=== PATIENT | female | born 1945 | race Caucasian/White ===

== ENCOUNTER 2018-12-12 22:34 | Emergency (ER) | payer OTHER ==
[~2018-12-12] VITALS: Ht 157.5 cm; Wt 77.1 kg
[2018-12-12] MEDS ORDERED: Zocor20 MG PO (22:55)
[2018-12-12] MEDS ORDERED: Hair, Skin & N1 EACH PO (22:56)
[2018-12-12] MEDS ORDERED: ESTR2 PO (22:56)
[2018-12-12] MEDS ORDERED: ASPI325 PO (22:56)
[2018-12-12 23:07] LABS: BASOPHILS ABSOLUTE AUTO 0.05 K/mm3 (0.00-0.23); BASOPHILS PERCENT AUTO 1 % (0-2); EOSINOPHILS ABSOLUTE AUTO 0.16 K/mm3 (0.00-0.68); EOSINOPHILS PERCENT AUTO 2 % (0-6); Hematocrit 43.3 % (33.0-51.0); Hemoglobin 14.3 g/dL (11.5-16.0); IMMATURE GRAN ABSOLUTE AUTO 0.03 K/mm3 (0.00-0.10); IMMATURE GRAN PERCENT AUTO 0 % (0-1); LYMPHOCYTES ABSOLUTE AUTO 3.07 K/mm3 (0.84-5.20); LYMPHOCYTES PERCENT AUTO 31 % (21-46); MONOCYTES ABSOLUTE AUTO 0.73 K/mm3 (0.16-1.47); MONOCYTES PERCENT AUTO 7 % (4-13); Mean Corpuscular HGB 31.7 pg (26.0-34.0); Mean Corpuscular Volume 96 fL (80-100); Mean Platelet Volume 10.7 fL (9.1-12.4); NEUTROPHILS ABSOLUTE AUTO 5.96 K/mm3 (1.96-9.15); NEUTROPHILS PERCENT AUTO 60 % (41-73); Platelet Count 235 K/mm3 (150-400); RDW Coefficient Variation 13.1 % (11.7-14.2); RDW Standard Deviation 46.2 fL (35.1-46.3); Red Blood Cell Count 4.51 M/mm3 (3.80-5.20)
[2018-12-12 23:30] LABS: Alanine Aminotransfer (ALT/SGP 34 U/L (12-78); Albumin, Blood 4.4 g/dL (3.4-5.0); Albumin/Globulin Ratio 1.3 (0.8-1.8); Alk Phos 86 U/L (50-136); Anion Gap 9 mmol/L (6-16); Aspartate Aminotrans (AST/SGOT 19 U/L (12-37); Bilirubin, Total 0.3 mg/dL (0.1-1.0); Blood Urea Nitrogen 38 mg/dL (8-24); Bun/Creatinine Ratio 46.4 (12.0-20.0); CO2, Blood 24 mmol/L (21-32); Calcium, Blood 9.1 mg/dL (8.5-10.1); Chloride, Blood 109 mmol/L (98-108); Creatinine, Blood 0.82 mg/dL (0.40-1.00); Globulin, Blood 3.3 g/dL (2.2-4.0); Glomerular Filtration Rate >60 (60-); Glucose, Blood 116 mg/dL (70-99); Potassium, Blood 3.8 mmol/L (3.5-5.5); Sodium, Blood 142 mmol/L (136-145); Total Protein, Blood 7.7 g/dL (6.4-8.2); Troponin I <0.015 ng/mL (0.000-0.040)
[2018-12-13] MEDS ORDERED: Lopressor 25 mg25 MG PO (00:21)
== END 2018-12-13 00:45 | disposition home or self-care (01) ==
LOC: ER 22:34
PROVIDERS: Emergency Medicine
DX: I48.0 Paroxysmal atrial fibrillation (principal); I10 Essential (primary) hypertension; Z79.899 Other long term (current) drug therapy; Z79.82 Long term (current) use of aspirin; E78.00 Pure hypercholesterolemia, unspecified
CPT/HCPCS: 71046; 80053; 83880; 84443; 84484; 85025; 93005; 93010; 99285-25

== ENCOUNTER 2019-07-18 09:16 | Day surgery (SDC) | payer MEDICARE ==
[~2019-07-18 09:16] MED LIST: ASCO500 PO; ASPI325 PO; CALCIUM PO; ELIQUIS2.5 MG PO; ESTR2 PO; ESTRADIOL PO; FISH OIL PO; GLUCOSAMINE &1 EACH PO; Hair, Skin & N1 EACH PO; Lopressor 25 mg25 MG PO; METO25; VITA D PO; VITAMIN D35000 UNIT PO; Zocor20 MG PO
[2019-07-18] MEDS ORDERED: COQ1050 MG PO (09:26)
[2019-07-18] MEDS ORDERED: THERA1 EACH PO (09:26)
[2019-07-18 10:31] LABS: BASOPHILS ABSOLUTE AUTO 0.04 K/mm3 (0.00-0.23); BASOPHILS PERCENT AUTO 1 % (0-2); EOSINOPHILS ABSOLUTE AUTO 0.12 K/mm3 (0.00-0.68); EOSINOPHILS PERCENT AUTO 2 % (0-6); Hematocrit 39.1 % (33.0-51.0); Hemoglobin 13.1 g/dL (11.5-16.0); IMMATURE GRAN ABSOLUTE AUTO 0.02 K/mm3 (0.00-0.10); IMMATURE GRAN PERCENT AUTO 0 % (0-1); LYMPHOCYTES ABSOLUTE AUTO 1.59 K/mm3 (0.84-5.20); LYMPHOCYTES PERCENT AUTO 22 % (21-46); MONOCYTES ABSOLUTE AUTO 0.35 K/mm3 (0.16-1.47); MONOCYTES PERCENT AUTO 5 % (4-13); Mean Corpuscular HGB 31.6 pg (26.0-34.0); Mean Corpuscular HGB Conc 33.5 g/dL (31.5-36.5); Mean Corpuscular Volume 94 fL (80-100); Mean Platelet Volume 10.4 fL (9.1-12.4); NEUTROPHILS ABSOLUTE AUTO 5.14 K/mm3 (1.96-9.15); NEUTROPHILS PERCENT AUTO 71 % (41-73); Platelet Count 205 K/mm3 (150-400); RDW Coefficient Variation 12.4 % (11.7-14.2); RDW Standard Deviation 42.7 fL (35.1-46.3); Red Blood Cell Count 4.15 M/mm3 (3.80-5.20); White Blood Cell Count 7.26 K/mm3 (4.00-11.30)
[2019-07-18 10:49] LABS: Prothrombin Time Results 10.6 Sec (9.7-11.5)
[2019-07-18 11:23] LABS: Anion Gap 6 mmol/L (6-16); Blood Urea Nitrogen 19 mg/dL (8-24); CO2, Blood 24 mmol/L (21-32); Calcium, Blood 9.2 mg/dL (8.5-10.1); Chloride, Blood 109 mmol/L (98-108); Creatinine, Blood 0.76 mg/dL (0.40-1.00); Glomerular Filtration Rate >60 (60-); Glucose, Blood 98 mg/dL (70-99); Potassium, Blood 4.1 mmol/L (3.5-5.5); Sodium, Blood 139 mmol/L (136-145)
== END 2019-07-18 23:34 | disposition home or self-care (01) ==
LOC: PRE 09:16
PROVIDERS: Orthopaedic Surgery
DX: Z01.818 Encounter for other preprocedural examination (principal); M17.12 Unilateral primary osteoarthritis, left knee
CPT/HCPCS: 36415; 80048; 85025; 85610; 85730; 93005; 93010

== ENCOUNTER 2019-08-06 09:23 | Day surgery (SDC) | payer MEDICARE ==
[~2019-08-06] VITALS: Ht 157.5 cm; Wt 76.3 kg
[~2019-08-06 09:23] MED LIST changes: +COQ1050 MG PO; +THERA1 EACH PO
--- NOTE | 2019-08-06 10:09 | NUR ---
Ambulatory in Day Surgery History, Chart, Medications and Allergies reviewed before start of procedure. Lungs clear T/O to Auscultation. Patient confirms NPO status and agrees with scheduled surgery.
--- NOTE | 2019-08-06 18:27 | NUR ---
SHIFT SUMMARY PT A&OX4, S/P L TKA, AQUACEL/ARMAAN WRAP CDI, TEDS, SCDS, POLAR GISELLE ON. PAIN MANAGED PER EMAR. VALERIA PO, DENIES N&V. PHYSICAL THERAPY EVAL'D, AT BEDSIDE. AMB W/FWW & GB TO BRP AND CHAIR. VOIDING WELL. WILL REPORT TO ONCOMING NOC RN.
[2019-08-07 04:51] LABS: BASOPHILS ABSOLUTE AUTO 0.02 K/mm3 (0.00-0.23); BASOPHILS PERCENT AUTO 0 % (0-2); EOSINOPHILS PERCENT AUTO 1 % (0-6); Hematocrit 30.2 % (33.0-51.0); Hemoglobin 9.9 g/dL (11.5-16.0); IMMATURE GRAN ABSOLUTE AUTO 0.03 K/mm3 (0.00-0.10); IMMATURE GRAN PERCENT AUTO 0 % (0-1); LYMPHOCYTES ABSOLUTE AUTO 0.99 K/mm3 (0.84-5.20); LYMPHOCYTES PERCENT AUTO 11 % (21-46); MONOCYTES ABSOLUTE AUTO 0.72 K/mm3 (0.16-1.47); MONOCYTES PERCENT AUTO 8 % (4-13); Mean Corpuscular HGB 31.9 pg (26.0-34.0); Mean Corpuscular HGB Conc 32.8 g/dL (31.5-36.5); Mean Corpuscular Volume 97 fL (80-100); NEUTROPHILS ABSOLUTE AUTO 7.49 K/mm3 (1.96-9.15); NEUTROPHILS PERCENT AUTO 80 % (41-73); Platelet Count 146 K/mm3 (150-400); RDW Coefficient Variation 12.3 % (11.7-14.2); White Blood Cell Count 9.35 K/mm3 (4.00-11.30)
[2019-08-07 05:10] LABS: Anion Gap 6 mmol/L (6-16); Blood Urea Nitrogen 17 mg/dL (8-24); Bun/Creatinine Ratio 19.5 (12.0-20.0); CO2, Blood 26 mmol/L (21-32); Calcium, Blood 8.4 mg/dL (8.5-10.1); Chloride, Blood 105 mmol/L (98-108); Creatinine, Blood 0.87 mg/dL (0.40-1.00); Glomerular Filtration Rate >60 (60-); Glucose, Blood 119 mg/dL (70-99); Potassium, Blood 4.2 mmol/L (3.5-5.5); Sodium, Blood 137 mmol/L (136-145)
--- NOTE | 2019-08-07 06:26 | NUR ---
SHIFT SUMMARY: LASHONDA IS POD1 FOR A LEFT TOTAL KNEE. SHE IS A&OX4, TOLERATING PO INTAKE WELL. SHE HAS BEEN AMBULATING TO THE BATHROOM WITH 1 PERSON STANDBY ASSIST, URINATING WITHOUT DIFFICULTY. AQUACELL C/D&I. BRISK CAPILLARY REFILL TO BLE. IV PATENT, SALINE LOCKED. SHE REPORTS ADEQUATE PAIN CONTROL WITH PRN PAIN MEDICATION. SHE RESTED COMFORTABLY FOR THE MAJORITY OF THE NIGHT. NO ACUTE CHANGES THIS SHIFT. SHE IS LYING IN BED WITH HER CALL LIGHT IN REACH.
[2019-08-07] MEDS ORDERED: Percocet 5-3251 EACH PO (08:58)
--- NOTE | 2019-08-07 10:01 | NUR ---
PT WORKING WITH THERAPY AT THIS TIME.
--- NOTE | 2019-08-07 11:56 | NUR ---
DISCHARGE SUMMARY PATIENT D/C HOME FROM UNIT VIA WHEELCHAIR AT 1117 TODAY. DISCHARGE INSTRUCTIONS, EXTRA DRESSING, POLAR PAC, SCRIPTS, AND PERSONAL BELONGINGS PROVIDED TO PT/FRIEND. CLEARED THERAPY THIS MORNING AND TOLERATED ACTIVITY WELL. REPORTS PAIN AT ACCEPTABLE LEVEL W/ PO MEDICATIONS. TOLERATING REGULAR DIET. DECLINED ANY CONCERNS AT TIME OF D/C, ENCOURAGED TO CALL IF ANY SHOULD ARISE.
== END 2019-08-07 12:01 | disposition home or self-care (01) ==
LOC: ORSCMMR 09:23 → ORD 09:45 → ORSCMMR 11:15 → ORD 11:30 → SURS 13:02 → ENPENDDIS 08-07 08:08 → ORSCMMR 08-07 12:01
PROVIDERS: Orthopaedic Surgery
PROC: 0SRD0JA Replacement of Left Knee Joint with Synthetic Substitute, Uncemented, Open Approach (ICD-10-PCS; principal; 2019-08-06 11:15)
DX: M17.12 Unilateral primary osteoarthritis, left knee (principal); Z01.818 Encounter for other preprocedural examination; I10 Essential (primary) hypertension; Z79.01 Long term (current) use of anticoagulants
CPT/HCPCS: 36415; 73560-LT; 80048; 85025; 86850; 86900; 86901; 88300; 97110; 97116; 97161; 97530; C1776; J0171; J0690; J0735; J1170; J1885; J2250; J2405; J2704; J2795; J7120

== ENCOUNTER 2019-09-24 12:47 | Day surgery (SDC) | payer MEDICARE ==
[~2019-09-24] VITALS: Ht 157.5 cm; Wt 71.1 kg
[~2019-09-24 12:47] MED LIST changes: +Percocet 5-3251 EACH PO
--- NOTE | 2019-09-24 13:15 | NUR ---
INTO SDS VIA WHEELCHAIR-PT ABLE TO STAND FOR WEIGHT AND AMBULATE TO BRP WITHOUT DIFFICULTY. History, Chart, Medications and Allergies reviewed before start of procedure.Lungs clear T/O to Auscultation. Patient confirms NPO status and agrees with scheduled surgery. Patient States Post-Procedure ride home has been arranged.
--- NOTE | 2019-09-26 14:25 | NUR ---
09/26/19 1425 Richa Thakur VERIFICATIONS, AUDITS.
== END 2019-09-24 15:54 | disposition home or self-care (01) ==
LOC: ORSCMMR 12:47
PROVIDERS: Orthopaedic Surgery
PROC: 0SNDXZZ Release Left Knee Joint, External Approach (ICD-10-PCS; principal; 2019-09-24 14:00)
DX: M24.662 Ankylosis, left knee (principal); Z96.652 Presence of left artificial knee joint; I10 Essential (primary) hypertension; I48.91 Unspecified atrial fibrillation; Z79.01 Long term (current) use of anticoagulants; Z79.899 Other long term (current) drug therapy
CPT/HCPCS: 73560-LT; J1170; J1885; J2250; J2405; J2704; J3010; J7120

== ENCOUNTER 2022-04-05 09:17 | Day surgery (SDC) | payer OTHER ==
[~2022-04-05] VITALS: Ht 157.5 cm; Wt 77.7 kg
--- NOTE | 2022-04-05 10:38 | NUR ---
04/05/22 Richa Alvares HISTORY, CHART, MEDICATIONS AND ALLERGIES REVIEWED BEFORE START OF PROCEDURE. PATIENT CONFIRMS NPO STATUS AND AGREES WITH SCHEDULED PROCEDURE. 3-LEAD EKG REVIEWED WITH PHYSICIAN PRIOR TO START OF PROCEDURE. MONITOR INTACT WITH CONTINUOUS PULSE OXIMETRY,CAPNOGRAPHY, 3-LEAD EKG, INTERMITTENT BP. SUPPLEMENTAL O2 TO BE TITRATED THROUGHOUT PROCEDURE TO MAINTAIN O2 SATURATION ABOVE 90%. PATIENT DETERMINED TO BE ASA APPROPRIATE FOR PROPOFOL SEDATION PRIOR TO START OF PROCEDURE BY DR. FENTON
--- NOTE | 2022-04-05 11:23 | NUR ---
Discharge instructions reviewed with patient. Patient verbalizes understanding. Copy given to patient to take home. Patient's to drive home. GAIT STEADY.
--- NOTE | 2022-04-05 11:25 | NUR ---
REPORT GIVEN TO MARIO ALBERTO RODRIGUEZ RN, WHO WILL DISCHARGE PATIENT HOME.
--- NOTE | 2022-04-05 11:37 | NUR ---
Discharge instructions reviewed with patient. Patient verbalizes understanding. Copy given to patient to take home. Patient States Post-Procedure ride home has been arranged. Discharged via wheelchair to private car for ride home.
== END 2022-04-05 11:41 | disposition home or self-care (01) ==
LOC: ORSCMMR 09:17 → ORD 10:30 → ORSCMMR 11:41
PROVIDERS: Surgery
PROC: 0DJD8ZZ Inspection of Lower Intestinal Tract, Via Natural or Artificial Opening Endoscopic (ICD-10-PCS; principal; 2022-04-05 10:30)
DX: Z12.11 Encounter for screening for malignant neoplasm of colon (principal); I48.91 Unspecified atrial fibrillation; Z85.3 Personal history of malignant neoplasm of breast; Z79.01 Long term (current) use of anticoagulants; Z79.899 Other long term (current) drug therapy; E78.5 Hyperlipidemia, unspecified; G25.81 Restless legs syndrome; I47.1 Supraventricular tachycardia
CPT/HCPCS: J2704; J7120

== ENCOUNTER 2024-08-19 07:09 | Day surgery (SDC) | payer OTHER ==
[~2024-08-19] VITALS: Ht 157.5 cm; Wt 74.5 kg
[2024-08-19] VITALS (8 sets, daily range): BP systolic 133–173; BP diastolic 58–88
[2024-08-19] MEDS ORDERED: Bupivacaine 0.5% HCl 5 MG/ML 30MLVIAL ONE (07:30)
[2024-08-19] MEDS ORDERED: Lactated Ringer's 1,000 ML IV SCH (07:35)
[2024-08-19] MEDS ORDERED: Ampicillin Sod/Sulbactam Sod 3 GM in NS 100 ML IV SCH (07:40)
--- NOTE | 2024-08-19 08:02 | NUR ---
History, Chart, Medications and Allergies reviewed before start of procedure. Pre-Op teaching done. Pt verbalizes understanding. Patient confirms NPO status and agrees with scheduled surgery. PT UNABLE TO REMOVE L HAND 4TH FINGER RING. RODRIGUEZ REFUSAL PAPERWORK SIGNED. PT BELONGINGS BAG PLACED UNDER GURNEY.
[2024-08-19] MEDS ORDERED: Dexamethasone Sod Phos 10 MG/ML 1ML VIAL ONE (08:03)
[2024-08-19] MEDS ORDERED: Ondansetron HCl 2 MG / ML 2ML Vial ONE (08:03)
[2024-08-19] MEDS ORDERED: FentaNYL Citrate 50 MCG/ML 2 ML Injection ONE (08:03)
[2024-08-19] MEDS ORDERED: propofoL 20 ML IV ONE (08:03)
[2024-08-19] MEDS ORDERED: Lidocaine HCl 2% 20 ML MDV ONE (08:03)
[2024-08-19 08:14] LABS: BASOPHILS ABSOLUTE AUTO 0.04 K/mm3 (0.00-0.23); BASOPHILS PERCENT AUTO 1 % (0-2); EOSINOPHILS ABSOLUTE AUTO 0.12 K/mm3 (0.00-0.68); EOSINOPHILS PERCENT AUTO 2 % (0-6); Hematocrit 35.9 % (33.0-51.0); Hemoglobin 12.4 g/dL (11.5-16.0); IMMATURE GRAN ABSOLUTE AUTO 0.02 K/mm3 (0.00-0.10); IMMATURE GRAN PERCENT AUTO 0 % (0-1); LYMPHOCYTES ABSOLUTE AUTO 1.19 K/mm3 (0.84-5.20); LYMPHOCYTES PERCENT AUTO 18 % (21-46); MONOCYTES ABSOLUTE AUTO 0.49 K/mm3 (0.16-1.47); MONOCYTES PERCENT AUTO 8 % (4-13); Mean Corpuscular HGB 33.2 pg (26.0-34.0); Mean Corpuscular HGB Conc 34.5 g/dL (31.5-36.5); Mean Corpuscular Volume 96 fL (80-100); NEUTROPHILS ABSOLUTE AUTO 4.59 K/mm3 (1.96-9.15); NEUTROPHILS PERCENT AUTO 71 % (41-73); Platelet Count 170 K/mm3 (150-400); RDW Coefficient Variation 12.2 % (11.7-14.2); RDW Standard Deviation 42.5 fL (35.1-46.3); Red Blood Cell Count 3.74 M/mm3 (3.80-5.20); White Blood Cell Count 6.45 K/mm3 (4.00-11.30)
[2024-08-19 08:31] LABS: Albumin, Blood 3.5 g/dL (3.4-5.0); Albumin/Globulin Ratio 0.9 (0.8-1.8); Bilirubin, Total 0.7 mg/dL (0.1-1.0); Bun/Creatinine Ratio 17.9 (12.0-20.0); Calcium, Blood 9.3 mg/dL (8.5-10.1); Creatinine, Blood 1.12 mg/dL (0.40-1.00); Globulin, Blood 3.7 g/dL (2.2-4.0); Potassium, Blood 4.1 mmol/L (3.5-5.5); Total Protein, Blood 7.2 g/dL (6.4-8.2)
[2024-08-19] MEDS ORDERED: Triple Antibiotic Ointment 30 gm ONE (08:52)
[2024-08-19] MEDS ORDERED: OxyCODONE 5 mg/Acetamin 325 mg TABLET PO PRN (09:15)
--- NOTE | 2024-08-19 10:37 | NUR ---
0925 RECIEVED PATIENT FROM PACU, AWAKE. BP SLIGHTY ELEVATED. PT STATES DID NOT TAKE METOPROLOL THIS AM, AND WILL TAKE WHEN GETS HOME. SMALL AMOUT OF RED DRAINAGE AT RECTUM, JESSICA AND MADONA PANTS ON.
== END 2024-08-19 23:00 | disposition home or self-care (01) ==
LOC: ORSCMMR 07:09 → ORD 07:09 → ORSCMMR 07:10 → ORD 07:30
PROVIDERS: Surgery
PROC: 0DBQ7ZX Excision of Anus, Via Natural or Artificial Opening, Diagnostic (ICD-10-PCS; principal; 2024-08-19 07:30)
DX: K62.5 Hemorrhage of anus and rectum (principal); D12.9 Benign neoplasm of anus and anal canal; I48.91 Unspecified atrial fibrillation; Z79.01 Long term (current) use of anticoagulants; E78.5 Hyperlipidemia, unspecified; Z85.3 Personal history of malignant neoplasm of breast; Z79.899 Other long term (current) drug therapy; E66.9 Obesity, unspecified; Z68.30 Body mass index [BMI] 30.0-30.9, adult
CPT/HCPCS: 80053; 85025; 88305; A9270; J0295; J1100; J2405; J2704; J3010; J7120